=== PATIENT | male | born 1995 | race Caucasian/White ===

== ENCOUNTER 2018-02-19 11:43 | Emergency (ER) | payer OTHER, MEDICAID, SELFPAY ==
[2018-02-19 11:49] VITALS: BP 141/89; PULSE 98; RESP 18; TEMP 37.2; O2SAT 98
--- NOTE | 2018-02-19 12:11 | ED_ITS ---
HPI - Skin/Abscess/Foreign Bdy <DONNA Stern - Last Filed: 02/19/18 22:16> General Chief complaint: Skin/Abscess/Foreign Body Stated complaint: STATES BITE RIGHT HAND X2 DAYS,OPEN WOUND Time Seen by Provider: 02/19/18 12:11 History of Present Illness HPI narrative: 22-year-old male here for complaint of having a lesion to his proximal right hand dorsal aspect that he states has been there for couple of days. He thinks he might have had a small abrasion to the area a couple of days ago however he states that it has opened in the center and has had some clear drainage from it. No purulent drainage. He is concerned for starting infection. No fevers no chills. He denies any other trauma or complaints at this time. MD complaint: lesion Related Data Home Medications Medication Instructions Recorded Confirmed buprenorphine-naloxone [Suboxone] 1 dose SUBLINGUAL DAILY 02/19/18 02/19/18 buprenorphine-naloxone [Suboxone] 1 dose SUBLINGUAL DAILY 02/19/18 02/19/18 Previous Rx's Medication Instructions Recorded clindamycin HCl 300 mg PO QID #28 cap 02/19/18 Allergies Allergy/AdvReac Type Severity Reaction Status Date / Time No Known Drug Allergies Allergy Verified 02/19/18 11:51 Review of Systems <DONNA Stern - Last Filed: 02/19/18 22:16> Constitutional Denies chills, Denies fever(s), Denies lethargy and Denies weakness Eyes Denies change in vision, Denies eye discharge, Denies irritation and Denies loss of vision ENT Ears, Nose, Mouth, and Throat: Denies change in voice, Denies neck pain and Denies sore throat Cardiovascular Denies chest pain, Denies irregular heart rhythm, Denies lightheadedness, Denies palpitations, Denies dyspnea, Denies dyspnea on exertion and Denies orthopnea Respiratory Denies cough, Denies dyspnea, Denies dyspnea on exertion and Denies wheezing Gastrointestinal Gastrointestinal: Denies abdominal pain, Denies change in bowel habits, Denies diarrhea, Denies nausea and Denies vomiting Genitourinary Denies hematuria, Denies flank pain, Denies urinary incontinence and Denies urinary urgency Musculoskeletal Denies neck pain Comments: Lesion to right hand Integumentary/Breasts Denies pruritus, Denies erythema, Denies rash and Denies wounds Neurologic Denies confusion, Denies loss of vision and Denies weakness Psychiatric Denies anxiety, Denies confusion, Denies depression, Denies homicidal ideation and Denies suicidal ideation Endocrine Denies palpitations Hematologic/Lymphatic Denies easy bruising Allergic/Immunologic Denies wheezing Exam <DONNA Stern - Last Filed: 02/19/18 22:16> Initial Vital Signs Initial Vital Signs: Vital Signs Temperature 98.9 F 02/19/18 11:49 Pulse Rate 98 H 02/19/18 11:49 Respiratory Rate 18 02/19/18 11:49 Blood Pressure 141/89 H 02/19/18 11:49 Pulse Oximetry 98 02/19/18 11:49 Const General: cooperative and well developed Nutritional Appearance: well nourished Orientation: alert, awake, oriented x3 and not confused HENMT Mouth: oral mucosae normal and moist mucous membranes Eyes Conjunctivae: conjunctivae normal Sclera: sclerae normal Pupils: PERRL EOM: EOM intact bilaterally Resp Effort & Inspection: normal respiratory effort, able to speak in complete sentences, no respiratory distress and no use of accessory muscles Auscultation: clear to auscultation bilaterally, no rales, no rhonchi and no wheezes Cardio Rate: regular rate Rhythm: regular rhythm Heart Sounds: no click, no gallops, no murmurs and no rubs Pulses: normal peripheral pulses Skin General: no rashes or lesions noted, No jaundice and No petechiae Neuro General: alert, oriented x3, gait normal and no focal motor deficits Speech: speech normal Extrem Other: 1 cm ulceration with slight amount of erythema surrounding. To the dorsal aspect of the proximal right hand. No induration no fluctuance. Distal sensation is intact. Distal range of motion is intact. Distal cap refill less than 2 sec. <Chato Conley DO - Last Filed: 03/08/18 07:57> Initial Vital Signs Initial Vital Signs: Vital Signs Temperature 98.9 F 02/19/18 11:49 Pulse Rate 98 H 02/19/18 11:49 Respiratory Rate 18 02/19/18 11:49 Blood Pressure 141/89 H 02/19/18 11:49 Pulse Oximetry 98 02/19/18 11:49 Course <DONNA Stern - Last Filed: 02/19/18 22:16> Vital Signs - 8 hr 02/19/18 11:49 Temperature 98.9 F Pulse Rate 98 H Respiratory Rate 18 Blood Pressure 141/89 H Pulse Oximetry 98 <Chato Conley DO - Last Filed: 03/08/18 07:57> Vital Signs - 8 hr 02/19/18 11:49 Temperature 98.9 F Pulse Rate 98 H Respiratory Rate 18 Blood Pressure 141/89 H Pulse Oximetry 98 MDM - Skin/Abscess/Foreign Bdy <DONNA Stern - Last Filed: 02/19/18 22:16> MDM Narrative Medical decision making narrative: Lesion to right hand with erythema no fluctuance or induration at this time. Patient states that worsening redness over the past couple of days and worsening symptoms will cover for starting abscess/cellulitis with clindamycin. Mupirocin ointment is also prescribed. Follow up with primary care provider next week for re-evaluation. Tylenol Motrin as needed for any discomfort. For any worsening symptoms return to the emergency room. Discharge Plan Departure Patient Disposition: Home, Self-Care Clinical Impression: Cellulitis Discharge Date/Time: 02/19/18 12:56 Interventions: ED Discharge Assessment Last Done: 02/19/18 12:54 Instructions: DI for Cellulitis -- Adult Activity Restrictions/Additional Instructions: Due to worsening redness to lesion to right hand will cover for starting cellulitis with an antibiotic use as directed. Topical antibiotic is also prescribed also use as directed. Tylenol Motrin as needed for any discomfort. Follow up with primary care provider next week. For any worsening symptoms return to the emergency room. Prescriptions: New clindamycin HCl 300 mg capsule 300 mg PO QID Qty: 28 RF: 0 No Action buprenorphine-naloxone [Suboxone] 2-0.5 mg film 1 dose Sublingual DAILY RF: 0 buprenorphine-naloxone [Suboxone] 8-2 mg film 1 dose Sublingual DAILY RF: 0 Referrals: [facility] [Provider Group] <Chato Conley DO - Last Filed: 03/08/18 07:57> Cosign ED Attending Mathew Attestation: I was immediately available in the department for consultation. Documentation has been reviewed. I agree with assessment and plan.
== END 2018-02-19 12:56 | disposition home or self-care (01) ==
PROVIDERS: Emergency Provider Nurse Practitioner Family
DX: L03.113 Cellulitis of right upper limb (principal)
CPT/HCPCS: 99282